=== PATIENT | female | born 1985 | race Caucasian/White ===

== ENCOUNTER 2023-03-29 13:47 | Emergency (ER) | payer OTHER ==
[~2023-03-29] VITALS: Ht 170.2 cm; Wt 95.3 kg
[~2023-03-29 13:47] MED LIST: IMODIUM2 MG; PHENERGAN25 MG
[2023-03-29] MEDS ORDERED: ZYRTEC10 M3 PO (14:08)
[2023-03-29] MEDS ORDERED: PAXLOVID 150-11 EACH PO (17:49)
== END 2023-03-29 18:01 | disposition home or self-care (01) ==
LOC: ER 13:47
DX: U07.1 COVID-19 (principal); Z91.013 Allergy to seafood